=== PATIENT | male | born 1970 | race Caucasian/White ===

== ENCOUNTER 2016-04-29 14:19 | Emergency (ER) | payer MEDICARE ==
[~2016-04-29] VITALS: Ht 182.9 cm; Wt 104.5 kg
[~2016-04-29 14:19] MED LIST: ADVICOR; FISH OIL1000 MG PO; KLONOPIN2 MG PO; LAMICTAL 100MG100 MG PO; LIORESAL 1010 MG/TAB PO; MULTIPLE VITAMI1 CAP PO; NIACIN500 MG PO; VALIUM5 MG PO
[2016-04-29 14:22] VITALS: BP 138/71; TEMP 98.9
[2016-04-29] MEDS ORDERED: NORCO 325 MG-51 TAB PO (15:33)
[2016-04-29] MEDS ORDERED: NAPROSYN 2250 MG/TAB PO (15:33)
[2016-04-29 15:53] VITALS: PULSE 74
== END 2016-04-29 15:54 | disposition home or self-care (01) ==
LOC: COL.ER 14:19
DX: M54.5 Low back pain (principal); M62.830 Muscle spasm of back
CPT/HCPCS: J1885; J2360

== ENCOUNTER 2019-01-17 10:28 | Outpatient (CLI) | payer MEDICARE ==
[2019-01-17] VITALS (9 sets, daily range): BP systolic 104–120; BP diastolic 56–82; PULSE 61–75; TEMP 98.2
[~2019-01-17] VITALS: Ht 182.9 cm; Wt 107.5 kg
[~2019-01-17 10:28] MED LIST changes: +MYSOLINE 5050 MG/TAB PO; +NAPROSYN 2250 MG/TAB PO; +NORCO 325 MG-51 TAB PO; +OMEGA-31 SGL PO; +TOPAMAX 25MG25 M1 PO
--- NOTE | 2019-01-17 11:30 | NUR ---
Pt to [facility] per cart s/p myelogram. Pt resting well.
--- NOTE | 2019-01-17 13:45 | NUR ---
Pt has ambulated, voided and annia PO intake s n/v. Pt unable to find anyone to drive him home. Pt insists he drive himself home.
--- NOTE | 2019-01-17 13:50 | NUR ---
Pt discharged per ambulation with nurse to car.
== END 2019-01-17 15:08 | disposition home or self-care (01) ==
LOC: COL.RAD 10:28
DX: J32.4 Chronic pansinusitis (principal); M54.2 Cervicalgia; G89.29 Other chronic pain
CPT/HCPCS: Q9967

== ENCOUNTER → 2019-02-28 | Outpatient (CLI) | payer MEDICARE | LOC: MHCPAIN 13:18 | DX: M47.812 Spondylosis without myelopathy or radiculopathy, cervical region (principal); R51 Headache | CPT/HCPCS: G0463 ==